=== PATIENT | female | born 1990 | race Caucasian/White ===

== ENCOUNTER 2019-09-21 09:43 | Inpatient (IN) | payer BC, OTHER ==
[2019-09-21] MEDS ORDERED: METHYLERGONOVINE 0.2 MG/ML 1 ML AMP IM PRN (10:08)
[2019-09-21] MEDS ORDERED: LIDOCAINE 0.5% (PF) 5 MG/ML (50 ML SDV) SQ PRN (10:08)
[2019-09-21] MEDS ORDERED: OXYTOCIN 10 UNIT/ML 1 ML VIAL IM PRN (10:08)
[2019-09-21] MEDS ORDERED: TERBUTALINE 1 MG/ML VIAL SQ PRN (10:08)
[2019-09-21] MEDS ORDERED: CARBOPROST TROMETHAMINE 250 MCG/ML 1 ML AMP IM PRN (10:08)
[2019-09-21 10:29] LABS: Basophils % (A) 0 %; Eosinophils # (A) 0.2 k/uL (0-0.7); Eosinophils % (A) 2 %; HCT 36.9 % (34.0-46.0); HGB 12.9 gm/dL (11.4-16.0); Lymphocytes # (A) 1.5 k/uL (1.0-4.8); Lymphocytes % (A) 15 %; MCH 30.8 pg (25.0-35.0); MCV 88.1 fL (80.0-100.0); Mean Platelet Volume 8.6; Monocytes # (A) 0.3 k/uL (0-1.0); Monocytes % (A) 3 %; Neutrophils # (A) 7.6 k/uL (1.3-7.7); Neutrophils % (A) 78 %; Platelet Count 198 k/uL (150-450); RBC 4.19 m/uL (3.80-5.40); RDW 13.1 % (11.5-15.5); WBC 9.7 k/uL (3.8-10.6)
[2019-09-21] MEDS: LACTATED RINGERS 1,000 ML IV SCH ×2 (10:57→21:17)
--- NOTE | 2019-09-21 11:05 | P.HPOB ---
History of Present Illness H&P Date: 09/21/19 Chief Complaint: Strong regular uterine contractions This is a 29-year-old white female 2 para 1001 EDC 09/27/2019 at 39 and one sevenths weeks' gestation. Patient presented with a complaint of strong regular uterine contractions. She denied fluid leakage or vaginal bleeding. Fetus is been active throughout the . Past obstetric history significant for blood type O positive, rubella status immune. VDRL testing, urine culture, hepatitis B surface antigen, HIV testing, gonorrhea and chlamydia cultures, group B strep cultures all negative. One-hour Glucola 110. Past medical history is essentially negative. Past surgical history laparoscopy, appendectomy, wisdom teeth extracted. Current medications vitamins. ALLERGIES none known. Family history significant for lung cancer, hypertension, diverticulitis, pancreatic cancer, colitis. Obstetric history significant for 7 lbs. 2 oz. vaginal delivery 2015. Social history patient is , she is never been a smoker, she is employed locally. She denies tobacco alcohol or drug use. On exam this is a pleasant white female who is 5 foot 2 inches, 165 pounds, blood pressure on admission 131/71. The general physical exam is within normal limits. Cervix on admission was 6 cm dilated, vertex presentation, intact membranes, 90% effaced, -2 station. heart rate consistent with reactive NST. Impression: 39 and one sevenths weeks intrauterine , active labor. Patient requesting epidural but course of labor progressing very rapidly. Plan: Close maternal and surveillance. Anticipate normal spontaneous vaginal delivery. Review of Systems Constitutional: Reports as per HPI Past Medical History Additional Past Medical History / Comment(s): ruptured ovarian cyst 2013 History of Any Multi-Drug Resistant Organisms: None Reported Past Surgical History: Appendectomy Additional Past Surgical History / Comment(s): Laproscopic Evacuation of hemoperitoneum from ruptured ovarian cyst 2014 Past Anesthesia/Blood Transfusion Reactions: No Reported Reaction Past Psychological History: No Psychological Hx Reported Smoking Status: Never smoker Past Alcohol Use History: None Reported Past Drug Use History: None Reported - Past Family History Father Family Medical History: Hypertension Mother History Unknown: Yes Additional Family Medical History / Comment(s): colitis Medications and Allergies Home Medications Medication Instructions Recorded Confirmed Type Pnv,Calcium 72/Iron/Folic Acid 1 each PO 07/14/16 History [ Plus Tablet] Allergies Allergy/AdvReac Type Severity Reaction Status Date / Time No Known Allergies Allergy Verified 09/21/19 10:00 Exam Intake and Output 09/20/19 09/21/19 09/21/19 22:59 06:59 14:59 Other: Weight 74.843 kg Results Result Diagrams: 09/21/19 10:11 Assessment and Plan Assessment: 39 and one sevenths weeks intrauterine , active spontaneous labor. All signs reassuring. Plan: Close maternal and surveillance. Analgesic options reviewed. Anticipate normal spontaneous vaginal delivery. Time with Patient: Less than 30
[2019-09-21] MEDS ORDERED: diphenhydrAMINE 50 MG CAP PO PRN (11:08)
[2019-09-21] MEDS ORDERED: ZOLPIDEM 5 MG TAB PO PRN (11:08)
[2019-09-21] MEDS ORDERED: LANOLIN CREAM 5 GM TUBE TOPICAL PRN (11:08)
[2019-09-21] MEDS ORDERED: diphenhydrAMINE 25 MG CAP PO PRN (11:08)
[2019-09-21] MEDS ORDERED: SIMETHICONE 80 MG CHEWABLE PO PRN (11:08)
[2019-09-21] MEDS ORDERED: HYDROCORTISONE 2.5% RECTAL CREAM 30 GM TUBE RECTAL PRN (11:08)
[2019-09-21] MEDS ORDERED: diphenhydrAMINE 50 MG/ML 1 ML VIAL IVP PRN ×2 (11:08)
[2019-09-21] MEDS ORDERED: BENZOCAINE/MENTHOL SPRAY 1 GM/SPRAY AEROSOL TOPICAL PRN (11:08)
[2019-09-21] MEDS ORDERED: WITCH HAZEL 1 EACH MED..PAD TOPICAL PRN (11:08)
[2019-09-21] MEDS ORDERED: ACETAMINOPHEN TAB 325 MG TAB PO PRN (11:08)
--- NOTE | 2019-09-21 11:08 | P.PROBDLV ---
Vaginal Delivery Note - . Vaginal Delivery Note: This is a 29-year-old white female 2 para 1001 EDC 09/27/2019 at 39 and one sevenths weeks' gestation. Patient presented from home with active spontaneous labor. She was admitted, and very quickly spontaneous amniorrhexis of clear fluid occurred. Patient became 8-9 cm rapidly and therefore analgesic options were limited. Please see dictated history and physical for details. Perineal body was prepped and draped in usual sterile fashion. Patient push the 's head out very quickly in a controlled fashion. The was a tight nuchal cord 1 that was reduced on the perineum. The left or anterior shoulder was gently delivered from underneath the pubic symphysis at which time the oropharynx, nasopharynx, and external nares were bulb suctioned on the perineal body. Patient was officially delivered of a liveborn male infant at 1042 hours. Umbilical cord was doubly clamped and ligated, he was handed to waiting nurses for evaluation where scores of 9 and 10 at one and 5 minutes respectively were given. The placenta delivered spontaneously, it was inspected and noted to be intact with trivascular cord. Careful inspection now of the cervix, vagina, perineum, periurethral, and perirectal areas revealed a small second-degree perineal la ceration. This was injected with 1% lidocaine and repaired in the usual fashion for excellent reapproximation. Fundus is massaged. Total estimated blood loss 250 mL's. All sponge needle and enhancement counts are correct at the end of the procedure. Patient and her family are allowed to begin the bonding experience in the LDR. They are requesting circumcision further infant son.
[2019-09-21] MEDS ORDERED: OXYTOCIN 20 UNITS/1000 ML NS 1,000 ML IV SCH (11:15)
[2019-09-21] MEDS: IBUPROFEN 600 MG TAB PO PRN ×2 (11:16→19:49)
[2019-09-21 11:49] VITALS: BMI 30.2
[2019-09-21] MEDS: SENNOSIDES-DOCUSATE SODIUM 1 EACH TAB PO SCH (19:49)
[2019-09-22] MEDS: LACTATED RINGERS 1,000 ML IV SCH ×2 (05:53→20:21)
--- NOTE | 2019-09-22 08:08 | P.DS ---
Providers Date of admission: 09/21/19 09:56 Expected date of discharge: 09/22/19 Attending physician: Anthony Pan Primary care physician: Stated None Hospital Course: This is a 29-year-old white female 2 para 1001 EDC 09/27/2019 at 39 and one sevenths weeks' gestation. Patient presented in active spontaneous labor from home. Fetus is been active throughout the . course was unremarkable, blood type O+, rubella status immune, group B strep cultures negative. Please see dictated history and physical for details. Patient received an epidural per her request. She went on to swiftly deliver vaginally a liveborn male infant with scores of 9 and 10 at one and 5 minutes respectively. There was a nuchal cord 1 that was easily reduced, estimated blood loss recorded of 250 mL, small second-degree perineal laceration easily repaired. weighed 7 lbs. 13 oz. or 3540 g. Please see dictated delivery note for details. This morning the patient is doing well. She is voiding, ambulating, and passing flatus without difficulty. Vital signs are stable and she is afebrile. Fundus is firm and in the midline, symmetric and 18 week size. Extremities are negative for edema. Vaginal bleeding is minimal. She denies issues with breast-feeding. [place] infant is doing well, circumcision has been performed. Patient is judged to be in very good condition for discharge home. She will follow-up with in the office in 6 weeks. I have reminded her no intercourse, tampons or douching. She will use [id number] Advil or Aleve, or ibuprofen as needed for pain. She will continue taking her vitamin daily. She will call with any fevers shakes or chills, foul smelling or copious lochia, with the passage of large blood clots, with any pain not alleviated by [id number] products, or indeed with any concerns. Patient Condition at Discharge: Good Plan - Discharge Summary Discharge Rx Participant: No New Discharge Prescriptions: No Action Pnv,Calcium 72/Iron/Folic Acid [ Plus Tablet] 1 each PO Discharge Medication List Pnv,Calcium 72/Iron/Folic Acid [ Plus Tablet] 1 each PO 07/14/16 [History] Follow up Appointment(s)/Referral(s): Anthony Pan MD [STAFF PHYSICIAN] - 6 Weeks Discharge Disposition: HOME SELF-CARE
[2019-09-22 08:15] LABS: Basophils % (A) 0 %; Eosinophils # (A) 0.3 k/uL (0-0.7); Eosinophils % (A) 3 %; HCT 33.4 % (34.0-46.0); HGB 11.4 gm/dL (11.4-16.0); Lymphocytes # (A) 2.3 k/uL (1.0-4.8); Lymphocytes % (A) 22 %; MCH 30.6 pg (25.0-35.0); Mean Platelet Volume 8.9; Monocytes # (A) 0.6 k/uL (0-1.0); Monocytes % (A) 5 %; Neutrophils # (A) 7.4 k/uL (1.3-7.7); Neutrophils % (A) 69 %; Platelet Count 157 k/uL (150-450); RBC 3.71 m/uL (3.80-5.40); RDW 13.3 % (11.5-15.5); WBC 10.8 k/uL (3.8-10.6)
[2019-09-22] MEDS: SENNOSIDES-DOCUSATE SODIUM 1 EACH TAB PO SCH ×2 (09:18→19:54)
[2019-09-22] MEDS: IBUPROFEN 600 MG TAB PO PRN ×2 (09:19→19:53)
[2019-09-22 15:42] VITALS: RESP 16
[2019-09-22 23:59] VITALS: TEMP 98.3
[2019-09-23 08:05] VITALS: BP 108/73; PULSE 71
[2019-09-23] MEDS: SENNOSIDES-DOCUSATE SODIUM 1 EACH TAB PO SCH (09:33)
[2019-09-23] MEDS: IBUPROFEN 600 MG TAB PO PRN (11:45)
== END 2019-09-23 16:40 | disposition home or self-care (01) | DRG 807 ==
LOC: FBPOP 09:43 → 4FBP 09:56
PROVIDERS: ADMIT Obstetrics & Gynecology; ATTEND Obstetrics & Gynecology
PROC: 10E0XZZ Delivery of Products of Conception, External Approach (ICD-10-PCS; principal; 2019-09-21)
PROC: 0KQM0ZZ Repair Perineum Muscle, Open Approach (ICD-10-PCS; 2019-09-21)
DX: O69.1XX0 Labor and delivery complicated by cord around neck, with compression, not applicable or unspecified (principal); Z37.0 Single live birth; O70.1 Second degree perineal laceration during delivery; Z3A.39 39 weeks gestation of pregnancy; Z80.0 Family history of malignant neoplasm of digestive organs; Z80.1 Family history of malignant neoplasm of trachea, bronchus and lung; Z82.49 Family history of ischemic heart disease and other diseases of the circulatory system; Z83.79 Family history of other diseases of the digestive system; Z90.49 Acquired absence of other specified parts of digestive tract
CPT/HCPCS: 85025; 86850; 86900; 86901

== ENCOUNTER 2022-04-04 04:48 | Inpatient (IN) | payer BC ==
[2022-04-04] MEDS ORDERED: OXYTOCIN 10 UNIT/ML 1 ML VIAL IM PRN (05:24)
[2022-04-04] MEDS ORDERED: TERBUTALINE 1 MG/ML VIAL SQ PRN (05:24)
[2022-04-04] MEDS ORDERED: CARBOPROST TROMETHAMINE 250 MCG/ML 1 ML AMP IM PRN (05:24)
[2022-04-04] MEDS ORDERED: METHYLERGONOVINE 0.2 MG/ML 1 ML AMP IM PRN (05:24)
[2022-04-04] MEDS ORDERED: LIDOCAINE 1% (PF) 10 MG/ML (30 ML SDV) SQ PRN (05:24)
[2022-04-04] MEDS: LACTATED RINGERS 1,000 ML IV SCH (05:30)
[2022-04-04] MEDS ORDERED: OXYTOCIN 30 UNITS/500 ML NS 30 UNIT in SALINE 1 500ML.BAG IV SCH ×2 (05:30→08:00)
[2022-04-04 05:55] LABS: Basophils % (A) 0 %; Eosinophils # (A) 0.6 k/uL (0-0.7); Eosinophils % (A) 6 %; Lymphocytes # (A) 2.2 k/uL (1.0-4.8); Lymphocytes % (A) 21 %; MCH 29.7 pg (25.0-35.0); MCHC 33.4 g/dL (31.0-37.0); MCV 88.9 fL (80.0-100.0); Monocytes # (A) 0.5 k/uL (0-1.0); Monocytes % (A) 4 %; Neutrophils # (A) 7.3 k/uL (1.3-7.7); Neutrophils % (A) 67 %; Platelet Count 188 k/uL (150-450); RBC 4.05 m/uL (3.80-5.40); RDW 13.5 % (11.5-15.5); WBC 10.8 k/uL (3.8-10.6)
[2022-04-04 06:35] LABS: Large Platelets Present
[2022-04-04] MEDS ORDERED: diphenhydrAMINE 50 MG/ML 1 ML VIAL IVP PRN ×2 (07:53)
[2022-04-04] MEDS ORDERED: SIMETHICONE 80 MG CHEWABLE PO PRN (07:53)
[2022-04-04] MEDS ORDERED: diphenhydrAMINE 50 MG CAP PO PRN (07:53)
[2022-04-04] MEDS ORDERED: diphenhydrAMINE 25 MG CAP PO PRN (07:53)
[2022-04-04] MEDS ORDERED: ZOLPIDEM 5 MG TAB PO PRN (07:53)
[2022-04-04] MEDS ORDERED: ACETAMINOPHEN TAB 325 MG TAB PO PRN (07:53)
[2022-04-04] MEDS ORDERED: HYDROCORTISONE 2.5% RECTAL CREAM 30 GM TUBE RECTAL PRN (07:53)
[2022-04-04] MEDS ORDERED: BENZOCAINE/MENTHOL SPRAY 1 GM/SPRAY AEROSOL TOPICAL PRN (07:53)
[2022-04-04] MEDS ORDERED: LANOLIN CREAM 5 GM TUBE TOPICAL PRN (07:53)
--- NOTE | 2022-04-04 07:57 | P.HPOB ---
History of Present Illness H&P Date: 04/04/22 Chief Complaint: IUP at 38 and 3, spontaneous rupture of membranes, labor 31-year-old 002 at 38-3/7 weeks, estimated due date of 5:15. Patient presents with complaints of spontaneous rupture of membranes around 4 AM. Patient notes fluid to be clear. Patient states contractions were every 2-4 minutes upon arrival to labor and delivery. Patient has been receiving routine care which has been essentially uncomplicated. On bloodwork this patient has a positive of O+, rubella status immune, B surface antigen negative, HIV negative, RPR is nonreactive, group beta strep cultures negative. Review of Systems Constitutional: Denies chills, Denies fatigue, Denies fever Ears, nose, mouth and throat: Denies headache Cardiovascular: Reports leg edema Respiratory: Denies dyspnea Gastrointestinal: Denies nausea, Denies vomiting Genitourinary: Reports Past Medical History Additional Past Medical History / Comment(s): ruptured ovarian cyst 2013 History of Any Multi-Drug Resistant Organisms: None Reported Past Surgical History: Appendectomy Additional Past Surgical History / Comment(s): Laproscopic Evacuation of hemoperitoneum from ruptured ovarian cyst 2013 Past Anesthesia/Blood Transfusion Reactions: No Reported Reaction Past Psychological History: No Psychological Hx Reported Smoking Status: Never smoker Past Alcohol Use History: None Reported Past Drug Use History: None Reported - Past Family History Father Family Medical History: Hypertension Additional Family Medical History / Comment(s): Diverticulitis Mother History Unknown: Yes Additional Family Medical History / Comment(s): colitis Medications and Allergies Home Medications Medication Instructions Recorded Confirmed Type Pnv,Calcium 72/Iron/Folic Acid 1 each PO DAILY 07/14/16 04/04/22 History [ Plus Tablet] Allergies Allergy/AdvReac Type Severity Reaction Status Date / Time No Known Allergies Allergy Verified 04/04/22 04:57 Exam Osteopathic Statement: *. No significant issues noted on an osteopathic structural exam other than those noted in the History and Physical/Consult. 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 When I arrived she was complete and +1. Results Result Diagrams: 04/04/22 05:20 Abnormal Lab Results - Last 24 Hours (Table) 04/04/22 Range/Units 05:20 WBC 10.8 H (3.8-10.6) k/uL Assessment and Plan (1) Active labor at term Current Visit: No Status: Acute Code(s): LBF7430 - SNOMED Code(s): 40215381 (2) Spontaneous rupture of amniotic membranes Current Visit: No Status: Acute Code(s): SIH1013 - SNOMED Code(s): 695461236 Plan: 31-year-old at 38-3/7 weeks that presents in active labor with spontaneous rupture of membranes. Patient declines epidural. Anticipate spontaneous vaginal delivery.
--- NOTE | 2022-04-04 07:58 | P.PROBDLV ---
Vaginal Delivery Note - . Vaginal Delivery Note: 31-year-old at 38-3/7 weeks presented to labor and delivery with complaints of spontaneous rupture of membranes at 4 AM and regular painful contractions. Patient was noted to be 4-5 cm on admission. Patient progressed through labor eventually becoming complete and had a normal spontaneous vaginal delivery of a viable male at 705, weight of 8 pounds 8.9 ounces, Apgars of 8 and 9 at one and 5 minutes respect weight. did have a loose nuchal cord that was delivered through. A spontaneous cry was noted at . After two-minute delayed the umbo cord was doubly clamped and cut and the infant was handed to the maternal abdomen. The placenta was delivered spontaneously intact with a three-vessel cord being noted. On inspection the patient's vaginal vault a second-degree midline laceration was appreciated. This was instilled with lidocaine and repaired in the usual fashion with 3-0 Rapide. The uterus noted be firm and below the umbilicus. S May blood loss 100 mL. Patient and infant tolerated delivery well and are resting comfortably. All counts were noted be correct 2 at the end of the delivery.
[2022-04-04] MEDS: IBUPROFEN 600 MG TAB PO SCH ×2 (08:45→18:49)
[2022-04-04] MEDS: PRENATAL VIT-IRON-FOLIC ACID 1 EACH CAP PO SCH (18:49)
[2022-04-04] MEDS: SENNOSIDES-DOCUSATE SODIUM 1 EACH TAB PO SCH ×3 (21:08→21:09)
[2022-04-05] MEDS: LACTATED RINGERS 1,000 ML IV SCH (00:17)
[2022-04-05] MEDS: IBUPROFEN 600 MG TAB PO SCH ×2 (00:17→01:37)
[2022-04-05 08:20] VITALS: BP 121/74; PULSE 78; RESP 16; TEMP 98.8
[2022-04-05] MEDS: SENNOSIDES-DOCUSATE SODIUM 1 EACH TAB PO SCH (08:21)
--- NOTE | 2022-04-05 08:46 | P.DS ---
Providers Date of admission: 04/04/22 04:49 Expected date of discharge: 04/05/22 Attending physician: Anthony Pan Primary care physician: Stated None - Discharge Diagnosis(es) (1) Normal spontaneous vaginal delivery Current Visit: No Status: Acute Hospital Course: The patient is a 31-year-old 3 para 2001 who is admitted at 38-3/7 weeks by good dating parameters. She presents with documented spontaneous rupture of membranes in active labor with all signs reassuring. Her has been uncomplicated and group B strep status is negative. On labor and delivery, she made fairly rapid progress through the active phase of labor to complete and then pushed quickly to a normal spontaneous vaginal delivery of a viable 8 lbs. 9 oz. baby boy with Apgars of 8 at 1 minute and 9 at 5 minutes. Her course was unremarkable with vital signs remaining stable and her temperature was afebrile throughout. She was deemed stable for discharge on day #1 was discharged home to follow-up in the office in 6 weeks' time routinely. Discharge instructions included calling for any significantly increased bleeding or foul-smelling lochia, significantly increased fever or abdominal pain, perineal complaints, breast complaints, or anything also concerned her. She was additionally instructed to have nothing in the vagina for at least 6 weeks time to include intercourse. She understood her instructions and agrees to follow up as noted above. Discharge medications included continued vitamins as she has opted to breast-feed. She was otherwise to use [id number] analgesic pain medications as needed. Maternal blood type is O+ and rubella status is immune. Procedures: #1. Normal spontaneous vaginal delivery #2. Repair of perineal laceration Patient Condition at Discharge: Stable Plan - Discharge Summary New Discharge Prescriptions: No Action Pnv,Calcium 72/Iron/Folic Acid [ Plus Tablet] 1 each PO DAILY Discharge Medication List Pnv,Calcium 72/Iron/Folic Acid [ Plus Tablet] 1 each PO DAILY 07/14/16 [History] Follow up Appointment(s)/Referral(s): Anthony Pan MD [STAFF PHYSICIAN] - 6 Weeks Discharge Disposition: HOME SELF-CARE
[2022-04-05] MEDS: PRENATAL VIT-IRON-FOLIC ACID 1 EACH CAP PO SCH (11:26)
== END 2022-04-05 11:45 | disposition home or self-care (01) | DRG 807 ==
LOC: FBPOP 04:48 → 4FBP 04:49
PROVIDERS: ADMIT Obstetrics & Gynecology Obstetrics; ATTEND Obstetrics & Gynecology
PROC: 10E0XZZ Delivery of Products of Conception, External Approach (ICD-10-PCS; principal; 2022-04-04)
PROC: 0KQM0ZZ Repair Perineum Muscle, Open Approach (ICD-10-PCS; principal; 2022-04-04)
DX: O69.81X0 Labor and delivery complicated by cord around neck, without compression, not applicable or unspecified (principal); Z37.0 Single live birth; O70.1 Second degree perineal laceration during delivery; Z3A.38 38 weeks gestation of pregnancy; Z79.899 Other long term (current) drug therapy; Z87.42 Personal history of other diseases of the female genital tract; Z90.49 Acquired absence of other specified parts of digestive tract; Z87.19 Personal history of other diseases of the digestive system; Z98.890 Other specified postprocedural states; Z82.49 Family history of ischemic heart disease and other diseases of the circulatory system; Z83.79 Family history of other diseases of the digestive system
CPT/HCPCS: 36415; 85025; 86850; 86900; 86901; 99213

== ENCOUNTER 2024-07-16 00:48 | Inpatient (IN) | payer BC | END 2024-07-17 15:00 | disposition home or self-care (01) | DRG 807 | LOC: 4NBN 00:48 → 4FBP 00:48 → UNDOADMIN 00:48 → UNDODISIN 07-17 15:00 | PROVIDERS: ADMIT Obstetrics & Gynecology; ATTEND Obstetrics & Gynecology | PROC: 10E0XZZ Delivery of Products of Conception, External Approach (ICD-10-PCS; principal; 2024-07-16) | PROC: 0W8NXZZ Division of Female Perineum, External Approach (ICD-10-PCS; principal; 2024-07-16) | PROC: 10907ZC Drainage of Amniotic Fluid, Therapeutic from Products of Conception, Via Natural or Artificial Opening (ICD-10-PCS; principal; 2024-07-16) | DX: O48.0 Post-term pregnancy (principal); Z3A.40 40 weeks gestation of pregnancy; Z37.0 Single live birth ==

== ENCOUNTER → 2025-05-25 | Outpatient (CLI) | payer BC ==
--- NOTE | 2025-05-25 14:52 | FL ---
EXAMINATION TYPE: FL barium swallow DATE OF EXAM: 05/25/2025 11:02 AM COMPARISON: None CLINICAL INDICATION:Female, 34 years old with history of R13.10 DYSPHAGIA, UNSPECIFIED; PHH, TECHNIQUE: The procedure was explained and patient history elicited. All patient questions were ans wered prior to start of procedure. Multiple spot fluoroscopic images of the esophagus were obtained a fter the oral ingestion of effervescent crystals and liquid barium as the contrast agent. DAP: NOT REPORTED mGym2 FINDINGS: The esophagus demonstrates normal primary and secondary peristalsis. The first toe demonstrate mild esophageal dysmotility with some retained contrast in the esophagus. This required subsequent swallow s to clear. The swallows after the first swallow were within normal limits. The esophageal mucosa is smooth without evidence of focal stricture, ulceration, or abnormal outpouching. No gastroesophageal reflux disease was identified IMPRESSION: Mild dysmotility on the first swallow of the subsequent swallows were within normal limits. [facility], , 05/25/2025 2:49 PM
== END | disposition home or self-care (01) ==
LOC: RADFLMAIN 10:29
PROVIDERS: ATTEND Family Medicine
DX: R13.10 Dysphagia, unspecified (principal)
CPT/HCPCS: 74220